=== PATIENT | male | born 1990 | race African-American/Black ===

== ENCOUNTER 2021-07-08 19:47 | Emergency (ER) | payer MEDICAID, OTHER ==
[~2021-07-08] VITALS: Ht 185.4 cm; Wt 69.0 kg
[2021-07-08 20:02] VITALS: BP 120/68
[2021-07-08] MEDS ORDERED: KETOROLAC 30MG/ML VIAL IM ONE (20:45)
[2021-07-08 21:01] LABS: BASOPHILS % 0.8 % (0.0-2.0); EOSINOPHILS % 0.7 % (0.0-5.0); HEMOGLOBIN. 13.5 g/dL (14.0-18.0); LYMPHOCYTES % 25.8 % (20.0-50.0); MEAN CORPUSCULAR HEMOGLOBIN 30.4 pg (28.0-32.0); MEAN CORPUSCULAR VOLUME 85.7 fL (80.0-94.0); MONOCYTES % 7.1 % (2.0-8.0); NEUTROPHILS % 65.6 % (40.0-76.0); PLATELET 187 x1000/uL (130-400); RED BLOOD CELL COUNT 4.43 mill/uL (4.7-6.1); RED CELL DISTRIBUTION WIDTH 12.8 % (11.6-14.6)
[2021-07-08 21:08] LABS: CHLORIDE 105 mEq/L (98-107)
[2021-07-08] MEDS ORDERED: ACETAMINOPHEN 500MG TABLET PO ONE (21:30)
== END 2021-07-08 21:50 | disposition home or self-care (01) ==
LOC: ER 19:47
DX: R51.9 Headache, unspecified (principal)
CPT/HCPCS: 36415; 80053; 85025; 99283; J1885

== ENCOUNTER 2023-11-09 02:18 | Emergency (ER) | payer MEDICAID ==
[~2023-11-09] VITALS: Ht 177.8 cm; Wt 70.0 kg
[2023-11-09 02:20] VITALS: BP 126/74; PULSE 72; RESP 18; TEMP 97.8; O2SAT 100
== END 2023-11-09 08:51 | disposition left against medical advice (07) ==
LOC: ER 02:18
DX: F41.9 Anxiety disorder, unspecified (principal); Z53.21 Procedure and treatment not carried out due to patient leaving prior to being seen by health care provider
CPT/HCPCS: 99281

== ENCOUNTER 2023-12-01 19:32 | Emergency (ER) | payer MEDICAID ==
[~2023-12-01] VITALS: Ht 182.9 cm; Wt 74.0 kg
[2023-12-01 19:35] VITALS: BP 134/86; PULSE 94; RESP 16; TEMP 98.1; O2SAT 99
[2023-12-01 21:32] LABS: BASOPHILS % 0.6 % (0.0-2.0); EOSINOPHILS % 1.3 % (0.0-5.0); HEMATOCRIT. 40.7 % (42.0-52.0); LYMPHOCYTES % 26.9 % (20.0-50.0); MEAN CORPUSCULAR HEMOGLOBIN 29.6 pg (28.0-32.0); MEAN CORPUSCULAR HGB CONC 34.5 g/dL (31.0-37.0); MEAN CORPUSCULAR VOLUME 85.8 fL (80.0-94.0); MEAN PLATELET VOLUME 7.2 fl (7.4-10.4); MONOCYTES % 7.1 % (2.0-8.0); NEUTROPHILS % 64.1 % (40.0-76.0); PLATELET 195 x1000/uL (130-400); RED BLOOD CELL COUNT 4.74 mill/uL (4.7-6.1); RED CELL DISTRIBUTION WIDTH 13.1 % (11.6-14.6); WHITE BLOOD COUNT 6.9 x1000/uL (4.5-11.0)
[2023-12-01 21:47] LABS: ALANINE AMINOTRANSFERASE 8 IU/L (10-49); ALBUMIN 4.5 g/dL (3.2-4.8); ASPARTATE AMINOTRANSFERASE 24 IU/L (<34); BILIRUBIN TOTAL 0.7 mg/dL (0.1-1.0); CALCIUM 9.2 mg/dL (8.7-10.4); CARBON DIOXIDE 29 mEq/L (21-32); CHLORIDE 103 mEq/L (98-107); GLUCOSE 82 mg/dL (70-105); POTASSIUM 3.2 mEq/L (3.5-5.1); PROTEIN TOTAL 7.3 g/dL (6.0-8.3); SODIUM 140 mEq/L (136-145); TROPONIN I HIGH SENSITIVITY 4 ng/L (3.0-53); UREA NITROGEN BLOOD 13 mg/dL (9-23)
[2023-12-01] MEDS: POTASSIUM CHLORIDE 20MEQ TABLET SR PO ONE (22:11)
[2023-12-01 23:39] LABS: TROPONIN I HIGH SENSITIVITY 5 ng/L (3.0-53)
== END 2023-12-01 23:59 | disposition home or self-care (01) ==
LOC: ER 19:32
DX: R07.9 Chest pain, unspecified (principal); F41.9 Anxiety disorder, unspecified; F32.A Depression, unspecified
CPT/HCPCS: 36415; 71045; 80053; 84484; 85025; 93005; 99285

== ENCOUNTER 2024-08-27 12:25 | Emergency (ER) | payer MEDICAID ==
[~2024-08-27] VITALS: Ht 180.3 cm; Wt 71.6 kg
[2024-08-27 12:30] VITALS: O2SAT 100
[2024-08-27] MEDS: LIDOCAINE HCL/PF 1% 10 MG/ML 5ML VIAL INFIL ONE (14:00)
[2024-08-27] MEDS ORDERED: CEPH500T MT (15:59)
[2024-08-27] MEDS: CEPHALEXIN 250MG CAPSULE PO ONE (16:56)
[2024-08-27 16:58] VITALS: BP 124/57; PULSE 61; RESP 15; TEMP 36.61404; O2SAT 100
== END 2024-08-27 17:11 | disposition home or self-care (01) ==
LOC: ER 12:25
DX: S62.634A Displaced fracture of distal phalanx of right ring finger, initial encounter for closed fracture (principal); S61.214A Laceration without foreign body of right ring finger without damage to nail, initial encounter; F41.9 Anxiety disorder, unspecified; F32.A Depression, unspecified; W20.8XXA Other cause of strike by thrown, projected or falling object, initial encounter; Y93.89 Activity, other specified; Y92.89 Other specified places as the place of occurrence of the external cause; Y99.8 Other external cause status
CPT/HCPCS: 73140; 12002; 99283; J3490; Z7610 ×2